=== PATIENT | male | born 1955 | race Caucasian/White ===

== ENCOUNTER 2017-04-05 23:14 | Inpatient (IN) | payer OTHER ==
[~2017-04-05] VITALS: Ht 180.3 cm; Wt 107.3 kg
[2017-04-06] VITALS (14 sets, daily range): BP systolic 128–188; BP diastolic 61–91; PULSE 40–52; RESP 18–20; Ht 180.3 cm; Wt 107.3 kg
[2017-04-06] MEDS ORDERED: ONDANSETRON 4 MG INJ IV PRN (01:30)
[2017-04-06] MEDS ORDERED: BISACODYL (EC) 5 MG TAB PO PRN (01:30)
[2017-04-06] MEDS ORDERED: morphine 2 MG INJ IV PRN (01:30)
[2017-04-06] MEDS ORDERED: hydrALAzine 20 MG INJ IV PRN (01:30)
[2017-04-06] MEDS ORDERED: DOCUSATE SODIUM 100 MG CAP PO PRN (01:30)
[2017-04-06] MEDS ORDERED: NITROGLYCERIN (SL) 0.4 MG TAB SL PRN (01:30)
[2017-04-06] MEDS ORDERED: ACETAMINOPHEN 325 MG TAB PO PRN (01:30)
[2017-04-06] MEDS ORDERED: NACL 0.9% 3 ML SYG IV SCH (01:30)
[2017-04-06] MEDS ORDERED: LORAZEPAM 2 MG INJ IV PRN (03:00)
--- NOTE | 2017-04-06 06:25 | HP ---
Date/Time of Note Date/Time of Note DATE: 04/06/17 TIME: 06:15 Assessment/Plan VTE Prophylaxis VTE Prophylaxis Intervention: SCD's Lines/Catheters IV [facility] ([facility] Saline Lock Urinary Cath still in place: No Assessment/Plan Chief Complaint/Hosp Course This is a 61-year-old male being admitted to the telemetry floor for: #1 chest pain: Rule out ACS versus muscular skeletal versus other etiology. Patient's first set of cardiac enzymes were negative, will trend cardiac enzymes. Currently on telemetry patient is sinus bradycardia 44 bpm. Will obtain an EKG. Will obtain a two-view chest x-ray. Will obtain a urine drug screen as patient does report marijuana use. Will consult cardiology and obtain a 2D echocardiogram. #2 Sinus bradycardia: On his transfer documentation reporting he was shown to be sinus bradycardic on his EKG at 53 bpm. Currently right now on telemetry he is 44 bpm. We will continue to monitor him on telemetry monitoring. We will consult cardiology. Will obtain a TSH level and magnesium level. Potassium right now is currently within normal values. #3 marijuana use: I did encourage cessation and I made him aware of possible risks from smoking such as spontaneous pneumothorax. Will order urine drug screen. #4 DVT and GI prophylaxis: SCDs, no GI prophylaxis indicated Further treatment strategy will be implemented as per the clinical course Problems: HPI/ROS Admit Date/Time Admit Date/Time Apr 06, 2017 at 01:01 Hx of Present Illness Chief complaint: Substernal chest pain This is a 61-year-old male who was transferred from [facility] after complaining of substernal chest pain. Patient reports that on April 05 in the afternoon he was walking and all of a sudden felt the sharp substernal chest pain. He stated that he did feel short of breath but denies any diaphoresis or swelling in the legs. He states that the pain was sharp and 8 out of 10 without any radiation. The patient went home and he was advised by family members to go to the emergency department. Patient went to [facility] where he was worked up for his chest pain. There is first set of troponins was negative. His chest x-ray was normal. EKG was sinus bradycardia at [address] elevations as per the transfer documentation. Patient did report that approximately 2 hours prior to his chest pain he was smoking marijuana, he is a daily marijuana smoker. He was then subsequently transferred to [facility] for further evaluation. At the current time patient states that he still is experiencing the chest pain though it is improved. He denies any shortness of breath or difficulty breathing. Patient was actually sleeping comfortably when I entered his room to interview him. Allergies: NKDA Medications: None ROS Const: As per HPI Eyes : No pain discharge or redness or change in visual acuity ENT: No pain, sore throat, congestion, congestion, dysphagia or discharge Respiratory: No shortness of breath, cough, sputum, wheezing, or pleuritic pain Cardiovascular: As per HPI GI : no change in appetite, abdominal pain, nausea, vomiting, diarrhea, constipation, or change in the color his stool Genitourinary: No dysuria, hematuria, flank pain , discharge or CVA tenderness Musculoskeletal: No joint pain, back pain, neck pain, restricted range of motion in neck or joints Skin: No rash, bruising or hives Neuro: No headache, dizziness, syncope, seizure, focal weakness Endocrine: No polyuria, polydipsia, temperature intolerance Psych: No hallucination, depression, anxiety or suicidal ideation PMH/Family/Social Past Medical History Medical History: no pertinent history Past Surgical History Bilateral knee arthroscopic surgeries, L5-S1 surgery, right index finger surgery Family History Significant Family History: heart disease (Mom), diabetes (Mom), hypertension Social History Alcohol Use: occasionally Smoking Status: Never smoker Drug Use: marijuana Exam/Review of Systems Vital Signs Vitals Vital Signs Date Time Temp Pulse Resp B/P Pulse Ox O2 Delivery O2 Flow Rate FiO2 04/06/17 04:20 40 04/06/17 03:41 97.5 18 148/61 98 04/06/17 01:00 Room Air Intake and Output 04/05/17 04/05/17 04/06/17 15:00 23:00 07:00 Intake Total 500 ml Balance 500 ml Exam Exam General: Patient is well-developed well-nourished The patient is alert oriented -3 lying comfortably in bed. HEENT: Atraumatic, normocephalic. The pupils are equal, round and reactive. Extraocular motor are intact Neck: Supple with full range of motion. No rigidity or meningismus Chest: Tender to palpation along the along the lower sternal chest/xiphoid process Lungs: Clear to auscultation bilaterally no crackles rales or wheezing Heart: Bradycardia, no overt murmurs appreciated Abdomen: Soft , nontender, nondistended , bowel sounds are present. No guarding no rebound tenderness , No masses or organomegaly. No costovertebral temporal angle mass Extremities: Normal to inspection, no edema no cyanosis Neurologic: Normal mental status, speech normal, cranial nerves II through XII are intact, motor and sensory are intact, no focal weakness Additional Comments Pertinent laboratory findings are as follows, please see transfer documentation for full report: EKG: Sinus bradycardia [address] elevations or depressions, left axis deviation Chest x-ray within normal values First troponin negative Labs Result Diagram: 04/06/1721204/06/17212 Medications Medications Current Medications Hydralazine HCl (Apresoline) 10 mg Q4H PRN IV ELEVATED SYSTOLIC BP Last administered on 04/06/17 02:07; Admin Dose 10 MG; Start 04/06/17 at 01:30 Ondansetron HCl (Zofran Inj) 4 mg Q6H PRN IV NAUSEA AND/OR VOMITING; Start 04/06/17 at 01:30 Nitroglycerin (Nitroglycerin (Sl Tab) 0.4 Mg) 1 tab Q5M PRN SL CHEST PAIN; Start 04/06/17 at 01:30 Acetaminophen (Tylenol Tab) 650 mg Q6H PRN PO PAIN LEVEL 1-3 OR FEVER; Start 04/06/17 at 01:30 Morphine Sulfate (morphine) 2 mg Q4H PRN IV PAIN LEVEL 7-10; Start 04/06/17 at 01:30 Docusate Sodium (Colace) 100 mg Q12H PRN PO CONSTIPATION; Start 04/06/17 at 01: 30 Bisacodyl (Dulcolax) 5 mg DAILY PRN PO CONSTIPATION; Start 04/06/17 at 01:30 Lorazepam (Ativan) 1 mg Q6H PRN IV AGITATION/ANXIETY; Start 04/06/17 at 03:00 SVETLANA VEGA Apr 06, 2017 06:25
--- NOTE | 2017-04-06 12:19 | PN ---
Date/Time of Note Date/Time of Note DATE: 04/06/17 TIME: 12:14 Assessment/Plan VTE Prophylaxis VTE Prophylaxis Intervention: SCD's Lines/Catheters IV [facility] Saline Lock Urinary Cath still in place: No Assessment/Plan Assessment/Plan 61 yo m with pmhx HTN presents following an episode of chest pain. d/dx cardiac v other. Also found to have HTN urgency and borderline sinus bradycardia PLAN cardiology consult for stress test BP control-->no BBs given low HR. start low dose acei, uptitrate as tolerated a1c in preDM range lipids not grossly deranged Subjective 24 Hr Interval Summary Free Text/Dictation Pt reports having a stress test several years ago Exam/Review of Systems Vital Signs Vitals Vital Signs Date Time Temp Pulse Resp B/P Pulse Ox O2 Delivery O2 Flow Rate FiO2 04/06/17 11:23 98.1 51 19 152/81 97 04/06/17 01:00 Room Air Intake and Output 04/05/17 04/05/17 04/06/17 15:00 23:00 07:00 Intake Total 500 ml Balance 500 ml Exam nad no mrg lungs clear abd soft no rashes Results Result Diagram: 04/06/173 04/06/173 Results 24 hrs Laboratory Tests Test 04/06/17 02:13 04/06/17 06:20 04/06/17 07:16 White Blood Count 5.9 Red Blood Count 4.45 L Hemoglobin 14.2 Hematocrit 42.1 Mean Corpuscular Volume 94.6 Mean Corpuscular Hemoglobin 31.9 Mean Corpuscular Hemoglobin Concent 33.7 Red Cell Distribution Width 12.8 Platelet Count 256 Mean Platelet Volume 9.3 Neutrophils % 33.6 L Lymphocytes % 49.1 Monocytes % 10.9 Eosinophils % 5.5 Basophils % 0.7 Nucleated Red Blood Cells % 0.0 Neutrophils # 2.0 Lymphocytes # 2.9 Monocytes # 0.6 Eosinophils # 0.3 Basophils # 0.0 Nucleated Red Blood Cells # 0.0 Sodium Level 143 Potassium Level 4.1 Chloride Level 106 Carbon Dioxide Level 29 Anion Gap 12 Blood Urea Nitrogen 12 Creatinine 0.89 Glucose Level 86 Hemoglobin A1c 5.7 Calcium Level 9.0 Magnesium Level 1.9 Total Bilirubin 0.2 Direct Bilirubin 0.00 Indirect Bilirubin 0.2 Aspartate Amino Transf (AST/SGOT) 47 H Alanine Aminotransferase (ALT/SGPT) 59 Alkaline Phosphatase 57 Creatine Kinase 249 H 205 H Creatine Kinase Index 1.2 1.4 Creatinine Kinase MB (Mass) 2.90 H 2.93 H Troponin I < 0.012 < 0.012 Total Protein 7.3 Albumin 3.8 Globulin 3.50 H Albumin/Globulin Ratio 1.08 Triglycerides Level 115 Cholesterol Level 144 LDL Cholesterol, Calculated 95 HDL Cholesterol 26 L Cholesterol/HDL Ratio 5.5 Thyroid Stimulating Hormone (TSH) 1.290 Urine Opiates Screen Negative Urine Barbiturates Negative Urine Amphetamines Screen Negative Urine Benzodiazepines Screen Negative Urine Cocaine Screen Negative Urine Cannabinoids Positive Medications Medications Current Medications Hydralazine HCl (Apresoline) 10 mg Q4H PRN IV ELEVATED SYSTOLIC BP Last administered on 04/06/17t 02:07; Admin Dose 10 MG; Start 04/06/17 at 01:30 Ondansetron HCl (Zofran Inj) 4 mg Q6H PRN IV NAUSEA AND/OR VOMITING; Start 04/06/17 at 01:30 Nitroglycerin (Nitroglycerin (Sl Tab) 0.4 Mg) 1 tab Q5M PRN SL CHEST PAIN; Start 04/06/17 at 01:30 Acetaminophen (Tylenol Tab) 650 mg Q6H PRN PO PAIN LEVEL 1-3 OR FEVER; Start 04/06/17 at 01:30 Morphine Sulfate (morphine) 2 mg Q4H PRN IV PAIN LEVEL 7-10; Start 04/06/17 at 01:30 Docusate Sodium (Colace) 100 mg Q12H PRN PO CONSTIPATION; Start 04/06/17 at 01: 30 Bisacodyl (Dulcolax) 5 mg DAILY PRN PO CONSTIPATION; Start 04/06/17 at 01:30 Lorazepam (Ativan) 1 mg Q6H PRN IV AGITATION/ANXIETY; Start 04/06/17 at 03:00 FREDRICK DESIR MD Apr 06, 2017 12:18
[2017-04-06] MEDS ORDERED: ASPIRIN (EC) 81 MG TAB PO ONE (12:30)
[2017-04-06] MEDS ORDERED: LISINOPRIL 5 MG TAB PO ONE (12:30)
--- NOTE | 2017-04-06 16:35 | RADRPT ---
Echocardiogram Report Patient Name: ANTOIENTTE GOEL Gender: Male Date: 1955 Study Date: 06-Apr-2017 Case Maker: JANNET Location: 5551 Ref. Physician: RAJENDRA PIPER Quality: Technically Difficult Study Procedures: Transthoracic echocardiogram with complete 2D, M-Mode, and doppler examination. Indications: Chest Pain. 2D/M Mode Doppler Measurement Value Normal Ranges Measurement Value Normal Ranges AoR Diam MM 3.5 cm JUWAN Vmax 2.4 cm2 ACS MM 2.0 cm JUWAN VTI 2.4 cm2 LA/Ao MM 1.1 AV Peak Braden 1.3 m/sec LA Dimen MM 3.8 cm AV Peak PG 7.2 mmHg LVIDd 2D 5.2 3.5 - 5.6 cm LVOT Peak Braden 1.0 m/sec LVIDs 2D 3.9 2.1 - 4.1 cm LVOT Peak PG 3.7 mmHg LVPWd 2D 1.1 0.6 - 1.1 cm MV E Peak Braden 0.6 m/sec IVSd 2D 1.1 0.6 - 1.1 cm MV A Peak Braden 0.7 m/sec EDV 2D 128.8 cm3 MV E/A 0.9 ESV 2D 57.2 cm3 MV Decel Time 291 msec EF 2D 50.0 50.0 - 65.0 % MV Decel [place] 2 LVOT Diam 2.1 cm MV E/A 0.9 Findings Left Ventricle: Normal left ventricular cavity size. Normal left ventricular wall thickness. Mild left ventricular systolic dysfunction. Ejection fraction is visually estimated at 50 %. Tissue Doppler/Mitral Doppler indices are consistent with impaired relaxation (Stage I diastolic dysfunction). Right Ventricle: Normal right ventricular size. Normal right ventricular systolic function. Left Atrium: The left atrium is normal in size. Right Atrium: The right atrium is normal in size. Mitral Valve: Normal appearance of the mitral valve. Mild mitral annular calcification. There is trace to mild mitral valve regurgitation. Aortic Valve: Normal appearance of the aortic valve. No significant aortic stenosis with trivial insufficiency by color. Tricuspid Valve: Normal appearance and function of the tricuspid valve with trace physiologic regurgitation. Unable to obtain RVSP due to minimal presence of tricuspid regurgitation. Pulmonic Valve: Pulmonic valve not well visualized. Pericardium: Normal pericardium with no significant pericardial effusion. Aorta: Normal aortic root. IVC: The IVC is not well visualized. Conclusions 1.Normal left ventricular cavity size. Normal left ventricular wall thickness. Mild left ventricular systolic dysfunction. Ejection fraction is visually estimated at 50%. Tissue Doppler/Mitral Doppler indices are consistent with impaired relaxation (Stage I diastolic dysfunction). 2.Normal right ventricular size. Normal right ventricular systolic function. 3.Normal appearance of the mitral valve. Mild mitral annular calcification. There is trace to mild mitral valve regurgitation. 4.Normal appearance of the aortic valve. No significant aortic stenosis with trivial insufficiency by color. 5.Normal appearance and function of the tricuspid valve with trace physiologic regurgitation. Unable to obtain RVSP due to minimal presence of tricuspid regurgitation. 6.Normal pericardium with no significant pericardial effusion. Electronically Signed By: Rajendra Piper 06-Apr-2017 16:34:42 -0700 Patient Name: ANTOINETTE GOEL Study Date: 06-Apr-2017 [id number]
--- NOTE | 2017-04-06 16:35 | RADRPT ---
Echocardiogram Report Patient Name: ANTOINETTE GOEL Gender: Male Date: 1955 Study Date: 06-Apr-2017 Rolled Glass Crosscutter: JANNET Location: 5551 Ref. Physician: RAJENDRA PIPER Quality: Technically Difficult Study Procedures: Transthoracic echocardiogram with complete 2D, M-Mode, and doppler examination. Indications: Chest Pain. 2D/M Mode Doppler Measurement Value Normal Ranges Measurement Value Normal Ranges AoR Diam MM 3.5 cm JUWAN Vmax 2.4 cm2 ACS MM 2.0 cm JUWAN VTI 2.4 cm2 LA/Ao MM 1.1 AV Peak Braden 1.3 m/sec LA Dimen MM 3.8 cm AV Peak PG 7.2 mmHg LVIDd 2D 5.2 3.5 - 5.6 cm LVOT Peak Braden 1.0 m/sec LVIDs 2D 3.9 2.1 - 4.1 cm LVOT Peak PG 3.7 mmHg LVPWd 2D 1.1 0.6 - 1.1 cm MV E Peak Braden 0.6 m/sec IVSd 2D 1.1 0.6 - 1.1 cm MV A Peak Braden 0.7 m/sec EDV 2D 128.8 cm3 MV E/A 0.9 ESV 2D 57.2 cm3 MV Decel Time 291 msec EF 2D 50.0 50.0 - 65.0 % MV Decel [place] 2 LVOT Diam 2.1 cm MV E/A 0.9 Findings Left Ventricle: Normal left ventricular cavity size. Normal left ventricular wall thickness. Mild left ventricular systolic dysfunction. Ejection fraction is visually estimated at 50 %. Tissue Doppler/Mitral Doppler indices are consistent with impaired relaxation (Stage I diastolic dysfunction). Right Ventricle: Normal right ventricular size. Normal right ventricular systolic function. Left Atrium: The left atrium is normal in size. Right Atrium: The right atrium is normal in size. Mitral Valve: Normal appearance of the mitral valve. Mild mitral annular calcification. There is trace to mild mitral valve regurgitation. Aortic Valve: Normal appearance of the aortic valve. No significant aortic stenosis with trivial insufficiency by color. Tricuspid Valve: Normal appearance and function of the tricuspid valve with trace physiologic regurgitation. Unable to obtain RVSP due to minimal presence of tricuspid regurgitation. Pulmonic Valve: Pulmonic valve not well visualized. Pericardium: Normal pericardium with no significant pericardial effusion. Aorta: Normal aortic root. IVC: The IVC is not well visualized. Conclusions 1.Normal left ventricular cavity size. Normal left ventricular wall thickness. Mild left ventricular systolic dysfunction. Ejection fraction is visually estimated at 50%. Tissue Doppler/Mitral Doppler indices are consistent with impaired relaxation (Stage I diastolic dysfunction). 2.Normal right ventricular size. Normal right ventricular systolic function. 3.Normal appearance of the mitral valve. Mild mitral annular calcification. There is trace to mild mitral valve regurgitation. 4.Normal appearance of the aortic valve. No significant aortic stenosis with trivial insufficiency by color. 5.Normal appearance and function of the tricuspid valve with trace physiologic regurgitation. Unable to obtain RVSP due to minimal presence of tricuspid regurgitation. 6.Normal pericardium with no significant pericardial effusion. Electronically Signed By: Rajendra Piper 06-Apr-2017 16:34:42 -0700 Patient Name: ANTOINETTE GOEL Study Date: 06-Apr-2017 [id number]
--- NOTE | 2017-04-06 18:23 | CONS ---
DATE OF ADMISSION: 04/06/2017 DATE OF CONSULTATION: 04/06/2017 REASON FOR CONSULTATION: Chest pain. HISTORY OF PRESENT ILLNESS: The patient is a 61-year-old gentleman who comes in with sudden onset o f chest pain as he was walking by the parking lot associated with mild shortness of breath. Denies any dizziness or syncope. Denies palpitation. He does complain of abdominal pain and nausea, but n o vomiting. Denies fever, chills, or rigors. Denies any prior history of coronary artery disease o r myocardial infarction. Denies hypertension, dyslipidemia, or diabetes mellitus. PAST MEDICAL HISTORY: Significant for arthritis. SOCIAL HISTORY: He smokes marijuana occasionally and social alcohol intake, but no smoking. ALLERGIES: NONE. CURRENT MEDICATIONS: 1. Lisinopril. 2. Aspirin. 3. Lipitor. REVIEW OF SYSTEMS: Unremarkable except that mentioned in the HPI. PHYSICAL EXAMINATION: VITAL SIGNS: Temperature is 98.1, heart rate of 51, blood pressure 152/81 mmHg, breathing at 19, sa turating 97%. GENERAL: Patient awake, alert, oriented, in no apparent distress. NECK: No JVD or carotid bruit. CARDIOVASCULAR: Regular rate and rhythm, no murmur, rub or gallop. CHEST: Clear to auscultation; however, there is tenderness to palpation at the costochondral juncti on. ABDOMEN: Soft. Bowel sounds are present. There is no organomegaly. EXTREMITIES: No pedal edema. No EKG in the chart. LABORATORY DATA: WBC 5.9, hemoglobin 14.3, hematocrit 42.1 with a platelet of 256. (The patient is with chest pain. No EKG done.) Sodium 143, potassium 4.1, chloride 106, CO2 29, BUN 12, creatinin e 0.89. TSH is 1.2. Total cholesterol 144, LDL 95, HDL 26, triglyceride 115. Troponin x2 is negat [place]. ASSESSMENT AND PLAN: A 61-year-old gentleman with: 1. Atypical chest pain. 2. Dyslipidemia. 3. Hypertension. 4. The patient has been ruled out for acute coronary syndrome with serial negative troponins. RECOMMENDATIONS: 1. EKG stat. 2. Echocardiogram to assess for segmental wall motion abnormality. 3. Continue lisinopril. 4. Continue Lipitor. 5. Continue aspirin. 6. Okay for discharge if it echo shows preserved left ventricular systolic function with no segment al wall motion abnormality. Dictated By: RICK PIPER MD, SR/ULISSES Conf#: [id number] DID#: [id number]
[2017-04-06] MEDS ORDERED: ATORVASTATIN 20 MG TAB PO SCH (21:00)
[2017-04-07] VITALS (12 sets, daily range): BP systolic 122–142; BP diastolic 65–79; PULSE 40–78; RESP 18–20
[2017-04-07] MEDS ORDERED: ASPIRIN (EC) 81 MG TAB PO SCH (09:00)
[2017-04-07] MEDS ORDERED: LISINOPRIL 5 MG TAB PO SCH (09:00)
--- NOTE | 2017-04-07 11:45 | CONS ---
Date/Time of Note Date/Time of Note DATE: 04/07/17 TIME: 11:37 Assessment/Plan Assessment/Plan Additional Assessment/Plan 1. Atypical chest pain. 2. Dyslipidemia. 3. Hypertension. 4. Sinus Bradycardia He denies dizziness Continue Lipitor Continue Lisinopril Continue ASA discharge if orthostatics is negative Consultation Date/Type/Reason Admit Date/Time Apr 06, 2017 at 01:01 Initial Consult Date Exam/Review of Systems Vital Signs Vitals Vital Signs Date Time Temp Pulse Resp B/P Pulse Ox O2 Delivery O2 Flow Rate FiO2 04/07/17 09:23 78 142/76 04/07/17 07:58 98.6 18 97 04/06/17 01:00 Room Air Intake and Output 04/06/17 04/06/17 04/07/17 15:00 23:00 07:00 Intake Total 400 ml Balance 400 ml Exam Constitutional: alert, oriented Head: atraumatic, normocephalic Neck: non-tender, supple Respiratory: clear to auscultation Cardiovascular: regular rate and rhythm Gastrointestinal: nl liver, spleen, non-tender, soft Extremities: normal pulses Results Result Diagram: 04/06/17 0213 04/07/17 0637 Results 24 hrs Laboratory Tests Test 04/07/17 06:37 Sodium Level 141 Potassium Level 4.8 Chloride Level 105 Carbon Dioxide Level 26 Anion Gap 15 Blood Urea Nitrogen 11 Creatinine 1.00 Glucose Level 82 Calcium Level 9.5 Magnesium Level 2.0 Total Bilirubin 0.4 Direct Bilirubin 0.00 Indirect Bilirubin 0.4 Aspartate Amino Transf (AST/SGOT) 50 H Alanine Aminotransferase (ALT/SGPT) 66 Alkaline Phosphatase 52 Total Protein 7.7 Albumin 3.9 Hepatitis C Antibody NEGATIVE Medications Medications Current Medications Ondansetron HCl (Zofran Inj) 4 mg Q6H PRN IV NAUSEA AND/OR VOMITING; Start 04/06/17 at 01:30 Nitroglycerin (Nitroglycerin (Sl Tab) 0.4 Mg) 1 tab Q5M PRN SL CHEST PAIN; Start 04/06/17 at 01:30 Acetaminophen (Tylenol Tab) 650 mg Q6H PRN PO PAIN LEVEL 1-3 OR FEVER; Start 04/06/17 at 01:30 Morphine Sulfate (morphine) 2 mg Q4H PRN IV PAIN LEVEL 7-10; Start 04/06/17 at 01:30 Docusate Sodium (Colace) 100 mg Q12H PRN PO CONSTIPATION; Start 04/06/17 at 01: 30 Bisacodyl (Dulcolax) 5 mg DAILY PRN PO CONSTIPATION; Start 04/06/17 at 01:30 Lisinopril (Zestril) 5 mg DAILY PO Last administered on 04/07/17 09:24; Admin Dose 5 MG; Start 04/07/17 at 09:00 Aspirin (Halfprin) 81 mg DAILY PO Last administered on 04/07/17 09:23; Admin Dose 81 MG; Start 04/07/17 at 09:00 Atorvastatin Calcium (Lipitor) 20 mg HS PO Last administered on 04/06/17 21:22 ; Admin Dose 20 MG; Start 04/06/17 at 21:00 RICK PIPER M.D. Apr 07, 2017 11:45
[2017-04-07] MEDS ORDERED: ASPI-664 PO (14:20)
[2017-04-07] MEDS ORDERED: ATOR20TA65 PO (14:20)
[2017-04-07] MEDS ORDERED: LISI-313 PO (14:20)
--- NOTE | 2017-04-07 14:21 | DS ---
Date/Time of Note Date/Time of Note DATE: 04/07/17 TIME: 14:21 Discharge Summary Admission/Discharge Info Admit Date/Time Apr 06, 2017 at 01:01 Discharge Date/Time Discharge Diagnosis hypertensive urgency, chest pain, elevated AST, sinus bradycardia, stage 1 diastolic dysfunction, prediabetes Patient Condition: Stable Consults cardiology Procedures 11.4 a1c: 5.7 TTE 11.4 Conclusions 1. Normal left ventricular cavity size. Normal left ventricular wall thickness. Mild left ventricular systolic dysfunction. Ejection fraction is visually estimated at 50%. Tissue Doppler/Mitral Doppler indices are consistent with impaired relaxation (Stage I diastolic dysfunction). 2. Normal right ventricular size. Normal right ventricular systolic function. 3. Normal appearance of the mitral valve. Mild mitral annular calcification. There is trace to mild mitral valve regurgitation. 4. Normal appearance of the aortic valve. No significant aortic stenosis with trivial insufficiency by color. 5. Normal appearance and function of the tricuspid valve with trace physiologic regurgitation. Unable to obtain RVSP due to minimal presence of tricuspid regurgitation. 6. Normal pericardium with no significant pericardial effusion. 11.5 HepC Ab negative Hepatic Panel - 28 Hours Test 04/06/17 02:13 04/07/17 06:37 Alanine Aminotransferase (ALT/SGPT) 59IU/L (13-69) 66IU/L (13-69) Albumin 3.8g/dl (3.3-4.9) 3.9g/dl (3.3-4.9) Alkaline Phosphatase 57IU/L (42-121) 52IU/L (42-121) Aspartate Amino Transf (AST/SGOT) 47IU/L (15-46) H 50IU/L (15-46) H Direct Bilirubin 0.00mg/dl (0.00-0.20) 0.00mg/dl (0.00-0.20) Total Bilirubin 0.2mg/dl (0.2-1.3) 0.4mg/dl (0.2-1.3) Total Protein 7.3g/dl (6.1-8.1) 7.7g/dl (6.1-8.1) Laboratory Tests Test 04/06/17 02:13 04/07/17 06:37 Blood Urea Nitrogen 12mg/dl 11mg/dl Carbon Dioxide Level 29mmol/L 26mmol/L Chloride Level 106mmol/L 105mmol/L Creatinine 0.89mg/dl 1.00mg/dl Glucose Level 86mg/dl 82mg/dl Hematocrit 42.1% Hemoglobin 14.2g/dl Platelet Count 68459^3/UL Potassium Level 4.1mmol/L 4.8mmol/L Sodium Level 143mmol/L 141mmol/L White Blood Count 5.910^3/ul 11.5 TSH 1.29 Hx of Present Illness Chief complaint: Substernal chest pain This is a 61-year-old male who was transferred from [facility] after complaining of substernal chest pain. Patient reports that on April 05 in the afternoon he was walking and all of a sudden felt the sharp substernal chest pain. He stated that he did feel short of breath but denies any diaphoresis or swelling in the legs. He states that the pain was sharp and 8 out of 10 without any radiation. The patient went home and he was advised by family members to go to the emergency department. Patient went to [facility] where he was worked up for his chest pain. There is first set of troponins was negative. His chest x-ray was normal. EKG was sinus bradycardia at [address] elevations as per the transfer documentation. Patient did report that approximately 2 hours prior to his chest pain he was smoking marijuana, he is a daily marijuana smoker. He was then subsequently transferred to [facility] for further evaluation. At the current time patient states that he still is experiencing the chest pain though it is improved. He denies any shortness of breath or difficulty breathing. Patient was actually sleeping comfortably when I entered his room to interview him. Allergies: NKDA Medications: None Hospital Course 61 yo m with pmhx HTN presents following an episode of chest pain. d/dx cardiac v other. Also found to have HTN urgency and borderline sinus bradycardia. Pt ruled out for ACS with serial troponins. TTE results as above. Pt seen by cardiology, no stress test advised at this time. Pt started on acei for BP control. Pt should have BP check and ChemP with PCP corby 7 days. Pt also found to have preDM2 based on a1c. Pt started on statin for primary prevention based on ASCVD risk calculation, also stated on asa for primary CAD prevention. Home Meds Active Scripts Aspirin* (Aspirin* EC) 81 Mg Tablet., 81 MG PO DAILY for 30 Days, #30 TAB Prov:FREDRICK DESIR MD 04/07/17 Lisinopril* (Lisinopril*) 5 Mg Tablet, 5 MG PO DAILY for 30 Days, #30 TAB Prov:FREDRICK DESIR MD 04/07/17 Atorvastatin Calcium (Atorvastatin Calcium) 20 Mg Tablet, 20 MG PO HS for 30 Days, #30 TAB Prov:FREDRICK DESIR MD 04/07/17 Follow-up Plan PCP within 7 days for further evaluation Primary Care Provider PCP Dr Marcel Duke [phone] [place], [place] [phone] Fax Number Time spent on discharge: > 30 minutes Pending Labs Laboratory Tests Test 04/07/17 06:37 Sodium Level 141mmol/L (135-144) Potassium Level 4.8mmol/L (3.5-5.1) Chloride Level 105mmol/L (97-110) Carbon Dioxide Level 26mmol/L (21-31) Anion Gap 15 (8-16) Blood Urea Nitrogen 11mg/dl (7-20) Creatinine 1.00mg/dl (0.61-1.24) Glucose Level 82mg/dl (70-220) Calcium Level 9.5mg/dl (8.4-10.2) Magnesium Level 2.0mg/dl (1.7-2.5) Total Bilirubin 0.4mg/dl (0.2-1.3) Direct Bilirubin 0.00mg/dl (0.00-0.20) Indirect Bilirubin 0.4mg/dl (0-1.1) Aspartate Amino Transf (AST/SGOT) 50IU/L (15-46) Alanine Aminotransferase (ALT/SGPT) 66IU/L (13-69) Alkaline Phosphatase 52IU/L (42-121) Total Protein 7.7g/dl (6.1-8.1) Albumin 3.9g/dl (3.3-4.9) Hepatitis C Antibody NEGATIVE (NEGATIVE) FREDRICK DESIR MD Apr 07, 2017 14:21
--- NOTE | 2017-04-07 14:21 | DS ---
Date/Time of Note Date/Time of Note DATE: 04/07/17 TIME: 14:21 Discharge Summary Admission/Discharge Info Admit Date/Time Apr 06, 2017 at 01:01 Discharge Date/Time Discharge Diagnosis hypertensive urgency, chest pain, elevated AST, sinus bradycardia, stage 1 diastolic dysfunction, prediabetes Patient Condition: Stable Consults cardiology Procedures 11.4 a1c: 5.7 TTE 11.4 Conclusions 1. Normal left ventricular cavity size. Normal left ventricular wall thickness. Mild left ventricular systolic dysfunction. Ejection fraction is visually estimated at 50%. Tissue Doppler/Mitral Doppler indices are consistent with impaired relaxation (Stage I diastolic dysfunction). 2. Normal right ventricular size. Normal right ventricular systolic function. 3. Normal appearance of the mitral valve. Mild mitral annular calcification. There is trace to mild mitral valve regurgitation. 4. Normal appearance of the aortic valve. No significant aortic stenosis with trivial insufficiency by color. 5. Normal appearance and function of the tricuspid valve with trace physiologic regurgitation. Unable to obtain RVSP due to minimal presence of tricuspid regurgitation. 6. Normal pericardium with no significant pericardial effusion. 11.5 HepC Ab negative Hepatic Panel - 28 Hours Test 04/06/17 02:13 04/07/17 06:37 Alanine Aminotransferase (ALT/SGPT) 59IU/L (13-69) 66IU/L (13-69) Albumin 3.8g/dl (3.3-4.9) 3.9g/dl (3.3-4.9) Alkaline Phosphatase 57IU/L (42-121) 52IU/L (42-121) Aspartate Amino Transf (AST/SGOT) 47IU/L (15-46) H 50IU/L (15-46) H Direct Bilirubin 0.00mg/dl (0.00-0.20) 0.00mg/dl (0.00-0.20) Total Bilirubin 0.2mg/dl (0.2-1.3) 0.4mg/dl (0.2-1.3) Total Protein 7.3g/dl (6.1-8.1) 7.7g/dl (6.1-8.1) Laboratory Tests Test 04/06/17 02:13 04/07/17 06:37 Blood Urea Nitrogen 12mg/dl 11mg/dl Carbon Dioxide Level 29mmol/L 26mmol/L Chloride Level 106mmol/L 105mmol/L Creatinine 0.89mg/dl 1.00mg/dl Glucose Level 86mg/dl 82mg/dl Hematocrit 42.1% Hemoglobin 14.2g/dl Platelet Count 36349^3/UL Potassium Level 4.1mmol/L 4.8mmol/L Sodium Level 143mmol/L 141mmol/L White Blood Count 5.910^3/ul 11.5 TSH 1.29 Hx of Present Illness Chief complaint: Substernal chest pain This is a 61-year-old male who was transferred from [facility] after complaining of substernal chest pain. Patient reports that on April 05 in the afternoon he was walking and all of a sudden felt the sharp substernal chest pain. He stated that he did feel short of breath but denies any diaphoresis or swelling in the legs. He states that the pain was sharp and 8 out of 10 without any radiation. The patient went home and he was advised by family members to go to the emergency department. Patient went to [facility] where he was worked up for his chest pain. There is first set of troponins was negative. His chest x-ray was normal. EKG was sinus bradycardia at [address] elevations as per the transfer documentation. Patient did report that approximately 2 hours prior to his chest pain he was smoking marijuana, he is a daily marijuana smoker. He was then subsequently transferred to [facility] for further evaluation. At the current time patient states that he still is experiencing the chest pain though it is improved. He denies any shortness of breath or difficulty breathing. Patient was actually sleeping comfortably when I entered his room to interview him. Allergies: NKDA Medications: None Hospital Course 61 yo m with pmhx HTN presents following an episode of chest pain. d/dx cardiac v other. Also found to have HTN urgency and borderline sinus bradycardia. Pt ruled out for ACS with serial troponins. TTE results as above. Pt seen by cardiology, no stress test advised at this time. Pt started on acei for BP control. Pt should have BP check and ChemP with PCP corby 7 days. Pt also found to have preDM2 based on a1c. Pt started on statin for primary prevention based on ASCVD risk calculation, also stated on asa for primary CAD prevention. Home Meds Active Scripts Aspirin* (Aspirin* EC) 81 Mg Tablet., 81 MG PO DAILY for 30 Days, #30 TAB Prov:FREDRICK DESIR MD 04/07/17 Lisinopril* (Lisinopril*) 5 Mg Tablet, 5 MG PO DAILY for 30 Days, #30 TAB Prov:FREDRICK DSEIR MD 04/07/17 Atorvastatin Calcium (Atorvastatin Calcium) 20 Mg Tablet, 20 MG PO HS for 30 Days, #30 TAB Prov:FREDRICK DESIR MD 04/07/17 Follow-up Plan PCP within 7 days for further evaluation Primary Care Provider PCP Dr Marcel Duke [phone] [place], [place] [phone] Fax Number Time spent on discharge: > 30 minutes Pending Labs Laboratory Tests Test 04/07/17 06:37 Sodium Level 141mmol/L (135-144) Potassium Level 4.8mmol/L (3.5-5.1) Chloride Level 105mmol/L (97-110) Carbon Dioxide Level 26mmol/L (21-31) Anion Gap 15 (8-16) Blood Urea Nitrogen 11mg/dl (7-20) Creatinine 1.00mg/dl (0.61-1.24) Glucose Level 82mg/dl (70-220) Calcium Level 9.5mg/dl (8.4-10.2) Magnesium Level 2.0mg/dl (1.7-2.5) Total Bilirubin 0.4mg/dl (0.2-1.3) Direct Bilirubin 0.00mg/dl (0.00-0.20) Indirect Bilirubin 0.4mg/dl (0-1.1) Aspartate Amino Transf (AST/SGOT) 50IU/L (15-46) Alanine Aminotransferase (ALT/SGPT) 66IU/L (13-69) Alkaline Phosphatase 52IU/L (42-121) Total Protein 7.7g/dl (6.1-8.1) Albumin 3.9g/dl (3.3-4.9) Hepatitis C Antibody NEGATIVE (NEGATIVE) FREDRICK DESIR MD Apr 07, 2017 14:21
--- NOTE | 2017-04-07 14:43 | PDOCDIS ---
Discharge Instructions DIAGNOSIS Discharge Diagnosis hypertensive urgency, chest pain, elevated AST, sinus bradycardia, stage 1 diastolic dysfunction, prediabetes CONDITION Patient Condition: Stable HOME CARE INSTRUCTIONS: Special Diet: 2 GM NA FOLLOW UP/APPOINTMENTS Follow-up Plan PCP within 7 days for further evaluation Dr Marcel Duke [phone] [facility] [[email or web address] [place] [address] Fax Number FREDRICK DESIR MD Apr 07, 2017 14:43
--- NOTE | 2017-04-07 14:43 | PDOCDIS ---
Discharge Instructions DIAGNOSIS Discharge Diagnosis hypertensive urgency, chest pain, elevated AST, sinus bradycardia, stage 1 diastolic dysfunction, prediabetes CONDITION Patient Condition: Stable HOME CARE INSTRUCTIONS: Special Diet: 2 GM NA FOLLOW UP/APPOINTMENTS Follow-up Plan PCP within 7 days for further evaluation Dr Marcel Duke [phone] [facility] [place] [address] Fax Number FREDRICK DESIR MD Apr 07, 2017 14:43
--- NOTE | 2017-04-07 14:43 | PDOCDIS ---
Discharge Instructions DIAGNOSIS Discharge Diagnosis hypertensive urgency, chest pain, elevated AST, sinus bradycardia, stage 1 diastolic dysfunction, prediabetes CONDITION Patient Condition: Stable HOME CARE INSTRUCTIONS: Special Diet: 2 GM NA FOLLOW UP/APPOINTMENTS Follow-up Plan PCP within 7 days for further evaluation Dr Marcel Duke [phone] [facility] [place] [address] Fax Number FREDRICK DESIR MD Apr 07, 2017 14:43
--- NOTE | 2017-04-09 14:53 | RADRPT ---
Vent Rate: 52 bpm RR Interval: 0 msec [place] Interval: 178 msec QRS Duration: 114 msec QT Interval: 414 msec QTC Interval: 385 msec P-R-T [place]: 61 - -63 - 57 degrees Sinus bradycardia Left anterior fascicular block Abnormal ECG Electronically Signed By: Jose Mosqueda [id number]
--- NOTE | 2017-04-09 14:53 | RADRPT ---
Vent Rate: 52 bpm RR Interval: 0 msec [place] Interval: 178 msec QRS Duration: 114 msec QT Interval: 414 msec QTC Interval: 385 msec P-R-T [place]: 61 - -63 - 57 degrees Sinus bradycardia Left anterior fascicular block Abnormal ECG Electronically Signed By: Jose Mosqueda [id number]
--- NOTE | 2017-04-09 14:53 | RADRPT ---
Vent Rate: 52 bpm RR Interval: 0 msec [place] Interval: 178 msec QRS Duration: 114 msec QT Interval: 414 msec QTC Interval: 385 msec P-R-T [place]: 61 - -63 - 57 degrees Sinus bradycardia Left anterior fascicular block Abnormal ECG Electronically Signed By: Jose Mosqueda [id number]
== END 2017-04-07 16:35 | disposition home or self-care (01) | DRG 313 ==
LOC: MS4 04-06 01:01
PROVIDERS: ADMIT Family Medicine; ATTEND Family Medicine
DX: R07.89 Other chest pain (principal); R00.1 Bradycardia, unspecified; F12.90 Cannabis use, unspecified, uncomplicated; I16.0 Hypertensive urgency; E78.5 Hyperlipidemia, unspecified; R73.03 Prediabetes
CPT/HCPCS: 80048; 80053; 80061; 80076; 80307; 82550; 82553; 83036; 83735; 84443; 84484; 85025; 86803; 93005; 93306; J0360